=== PATIENT | male | born 1995 | race Caucasian/White ===

== ENCOUNTER 2023-08-01 13:52 | Emergency (ER) | payer OTHER, SELFPAY ==
--- NOTE | ~2023-08-01 | CT_ITS ---
EXAMINATION: CT HEAD WITHOUT CONTRAST CT CERVICAL SPINE WITHOUT CONTRAST CLINICAL INFORMATION: Head injury at work. COMPARISON: None. TECHNIQUE: Contiguous axial imaging was performed from the skullbase to vertex without intravenous administration of contrast. Multidetector helical imaging was performed through the cervical spine. This CT examination was performed using dose optimization techniques as appropriate, variously including the following: *Automated exposure control *Adjustment of mA and/or kV according to patient size (this includes techniques or standardized protocols for targeted exams where dose is matched to indication/reason for exam; i.e. extremities or head) *Use of iterative reconstruction technique DLP: 675.02, 736.6 mGy-cm. FINDINGS: HEAD: There is no evidence of acute intracranial hemorrhage or territorial infarction. No abnormal mass effect or midline shift is seen. [place] to white matter differentiation is well preserved. No extra-axial fluid collections are identified. The ventricles are normal in size. Brain parenchymal attenuation is normal. The osseous structures and soft tissues are normal. The mastoid air cells are well aerated. Mild mucosal thickening noted in the maxillary and ethmoid sinuses. CERVICAL SPINE: No acute fracture or dislocation is identified in the cervical spine. The disc spaces are maintained. No focal protrusion is noted. The atlantoaxial articulation is normally maintained. The paraspinal soft tissues are normal. The lung apices are clear. CT/CT head/brain wo IV con IMPRESSION: 1. No acute intracranial pathology. 2. No evidence of acute cervical spine traumatic injury.
--- NOTE | ~2023-08-01 | CT_ITS ---
EXAMINATION: CT HEAD WITHOUT CONTRAST CT CERVICAL SPINE WITHOUT CONTRAST CLINICAL INFORMATION: Head injury at work. COMPARISON: None. TECHNIQUE: Contiguous axial imaging was performed from the skullbase to vertex without intravenous administration of contrast. Multidetector helical imaging was performed through the cervical spine. This CT examination was performed using dose optimization techniques as appropriate, variously including the following: *Automated exposure control *Adjustment of mA and/or kV according to patient size (this includes techniques or standardized protocols for targeted exams where dose is matched to indication/reason for exam; i.e. extremities or head) *Use of iterative reconstruction technique DLP: 675.02, 736.6 mGy-cm. FINDINGS: HEAD: There is no evidence of acute intracranial hemorrhage or territorial infarction. No abnormal mass effect or midline shift is seen. [place] to white matter differentiation is well preserved. No extra-axial fluid collections are identified. The ventricles are normal in size. Brain parenchymal attenuation is normal. The osseous structures and soft tissues are normal. The mastoid air cells are well aerated. Mild mucosal thickening noted in the maxillary and ethmoid sinuses. CERVICAL SPINE: No acute fracture or dislocation is identified in the cervical spine. The disc spaces are maintained. No focal protrusion is noted. The atlantoaxial articulation is normally maintained. The paraspinal soft tissues are normal. The lung apices are clear. CT/CT cervical spine wo IV con IMPRESSION: 1. No acute intracranial pathology. 2. No evidence of acute cervical spine traumatic injury.
[2023-08-01 14:19] VITALS: BP 165/109; PULSE 54; RESP 16; TEMP 36.3; O2SAT 98; BMI 41.8
--- NOTE | 2023-08-01 14:23 | ED_ITS ---
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 Also having intermittent nausea since yesterday. Denies visual disturbances, weakness, chest pain, shortness of breath, neck pain, vomiting, abdominal pain. GCS 15. NIH stroke scale 0 Related Data Allergies Allergy/AdvReac Type Severity Reaction Status Date / Time No Known Allergies Allergy Verified 08/01/23 14:17 Review of Systems Review of Systems: Constitutional : No Weight loss, No Fever, No Chills, No Fatigue, No Malaise ENT/Mouth : No sore throat, No Rhinorrhea Eyes: No Eye Pain, No Swelling, No Redness Cardiovascular : No Chest Pain, No SOB, No Dyspnea on Exertion, No Orthopnea, No Edema, No Palpitations Respiratory : No Cough, No Sputum, No Wheezing Gastrointestinal : No Nausea, No Vomiting, No Diarrhea, No Constipation, No abdominal Pain, No Hematochezia, No Melena Genitourinary : No Dysuria, No Urinary Frequency, No Hematuria, Musculoskeletal : No joint pain, No Myalgias, No Joint Swelling Skin : No Skin Lesions, No rash Neuro : No Weakness, No Numbness, No Dizziness, + Headache Psych : No Anxiety/Panic, No Depression All other systems reviewed and are negative Yes all other systems are reviewed and are negative [facility] Past Medical History Attestation statement: The following information was validated with the patient. Source: old records reviewed and nursing notes reviewed Social History Social History Advance Directives: No Advance Directives Information Provided: No Physical Exam ED Vital Signs: Vital Signs - 24 hr 08/01/23 14:19 08/01/23 16:33 Temperature 97.4 F 96.9 F Pulse Rate 54 68 Respiratory Rate 16 18 Blood Pressure 165/109 H 170/96 H Pulse Oximetry 98 100 Oxygen Delivery Method Room Air Room Air BMI result Body Mass Index 41.8 vss Appearance: Alert.? Oriented X3.? No acute distress.? Head: Normocephalic, atraumatic, no step-offs or deformities Eyes: Pupils equal, round and reactive to light.? CVS: Normal heart rate and rhythm.? Pulses normal.? Respiratory: No respiratory distress.? Breath sounds normal.? Abdomen: Soft and nontender.? Skin: Skin warm and dry.? Normal skin color.? Normal skin turgor.? Extremities: No lower extremity edema.? No calf ttp. 5/5 strength to bilateral upper and lower extremities Neuro: Oriented X 3.? No motor deficit.? No sensory deficit. CN 2-12 intact . Able to balance on bilateral lower extremities without difficulty. Normal [id number] negative Romberg and pronator drift. Ambulatory steady gait normal coordination Course Course Course Narrative: RME: 28-year-old male brought to the ED for nausea and headache since yesterday. 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 There was no loss of consciousness. 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 Friend translating. Not on blood thinners. WIll sent for imaging Medications Administered Discontinued Medications Generic Name Dose Route Start Last Admin Trade Name Laura PRN Reason Stop Dose Admin Ketorolac Tromethamine 30 mg 08/01/23 16:14 08/01/23 16:32 Ketorolac Tromethamine 30 Mg/Ml Vial IM 08/01/23 16:15 30 mg ONCE ONE Administration Medical Decision Making Medical Decision Making [facility] Narrative: 28-year-old male presents status post head injury yesterday while at work. No LOC. Not on blood thinners. Physical exam benign. Negative NIH stroke scale. GCS 15. Vital signs significant for hypertension this could be essential hypertension however patient is reporting severe headache pain could contribute to falsely elevated pressure. Will repeat after medication. History and physical exam concerning for closed head injury/concussion. Unlikely intracranial hemorrhage, stroke, posterior stroke, traumatic subluxations or fractures of cervical spine. No other injuries to head, neck, chest, abdomen or pelvis. Plan at this time imaging, Toradol. Differential Diagnosis Differential Diagnoses: The differential diagnosis associated with the presentation includes History and physical exam concerning for closed head injury/concussion. Unlikely intracranial hemorrhage, stroke, posterior stroke, traumatic subluxations or fractures of cervical spine. No other injuries to head, neck, chest, abdomen or pelvis. Admission/Observation Consideration of admission/observation: Escalation of care including admission/observation considered unlikely Independent Interpretation I performed an independent interpretation of an: CT Scan (CT/CT head/brain wo IV con IMPRESSION: 1. No acute intracranial pathology. 2. No evidence of acute cervical spine traumatic injury.) Radiology Impression Discussion of test interpretation with radiology: I have reviewed the radiologist's reading. Prescription Management I considered prescription management with: Pain Medication (toradol ) Chronic Conditions Patient?s care impacted by: Other (obesity ) Critical Care Time Critical Care Time Critical Care Time: No Discharge Plan Discharge Clinical Impression: Closed head injury, Concussion without loss of consciousness Patient Disposition: Home, Self-Care Instructions: Concussion (ED), Post Concussion Syndrome (ED) Additional Instructions: Take your medications as prescribed. If you were prescribed antibiotics today, it is important that you take your medication to their entirety, do not skip any doses, do not finish them early. Follow-up with your primary care provider this week. Return to the emergency department with new or worsening symptoms. Such as fevers, chills, chest pain, shortness of breath, nausea, vomiting, dizziness, headache, vision changes, lethargy In case of emergency call 911 You likely have a concussion based off of the mechanism of injury, please rest her brain limit screen time, no vigorous exercising. If you experience any symptoms of post concussive syndrome such as altered mental status, seizures, or any new or worsening symptoms you should seek medical attention immediately. Toradol has been sent to your pharmacy, you tolerated this well in the department. Please take this as prescribed do not take this with ibuprofen, or other NSAIDs, do not mix this with alcohol. Side effects of this medication including increased risk for bleeding and possible kidney injury. CT/CT head/brain wo IV con IMPRESSION: 1. No acute intracranial pathology. 2. No evidence of acute cervical spine traumatic injury [place] seus medicamentos conforme prescrito. Se hoje lhe celestine prescritos antibi?ticos, ? importante que tome a medica??o na ?ntegra, n?o pule nenhuma dose, n?o termine antes do tempo. Fa?a acompanhamento com seu m?dico esta semana. Retorne ao pronto-gifty com sintomas novos ou agravamento. Kimberly taiwo febre, calafrios, dami no peito, falta de ar, n?usea, v?ileana, tontura, dami de cabe?a, altera??es na vis?o, letargia Em bradly de emerg?ncia ligue para o 911 Voc? provavelmente teve zhane concuss?o baseada no mecanismo da les?o. Por favor, descanse o c?rebro sherlyn, limite o tempo de lise, maty exerc?cios vigorosos. Se sentir quaisquer sintomas de s?ndrome p?s-concussiva, taiwo estado mental alterado, convuls?es ou quaisquer sintomas novos ou agravados, procure atendimento m?dico imediatamente. O Toradol foi enviado para a sua farm?hermelinda, voc? tolerou bem no departamento. Por favor, tome conforme prescrito, n?o tome com ibuprofeno ou outros AINEs, n?o misture com ?lcool. Os efeitos colaterais deste medicamento incluem risco aumentado de sangramento e poss?regan les?o renal. CT/CT cabe?a/c?rebro maty IV con IMPRESS?O: 1. Nenhuma patologia intracraniana aguda. 2. Nenhuma evid?ncia de les?o traum?bridger aguda da coluna cervical Referrals: Physician,None [Primary Care Provider] - 2 days Stand Alone Forms: Work/School Release Interventions: ED Discharge Assessment Last Done: 08/01/23 17:04 Discharge Date/Time: 08/01/23 17:04
[2023-08-01] MEDS: Ketorolac Tromethamine 30 MG/ML VIAL IM (16:32)
[2023-08-01 16:33] VITALS: BP 170/96; PULSE 68; RESP 18; TEMP 36.1; O2SAT 100
--- NOTE | 2023-08-01 16:35 | PC.NURSE ---
pt a&ox3, c/o headache 12/09, pt medicated per order, call pepe within reach, will continue to monitor.
== END 2023-08-01 17:04 | disposition home or self-care (01) ==
PROVIDERS: Emergency Provider Emergency Medicine
DX: S06.0X0A Concussion without loss of consciousness, initial encounter (principal); W20.8XXA Other cause of strike by thrown, projected or falling object, initial encounter; Y93.H3 Activity, building and construction; Y92.61 Building [any] under construction as the place of occurrence of the external cause; Y99.0 Civilian activity done for income or pay
CPT/HCPCS: 70450; 72125; 96372; 99284; J1885